=== PATIENT | male | born 1975 | race African-American/Black ===

== ENCOUNTER 2024-02-26 11:23 | Emergency (ER) | payer OTHER, SELFPAY ==
[2024-02-26] VITALS (7 sets, daily range): BP systolic 137–158; BP diastolic 88–96; PULSE 101–113; RESP 18–34; TEMP 37.4; O2SAT 93–97
--- NOTE | ~2024-02-26 | XR_ITS ---
Right Shoulder Technique: AP and scapular Y views were obtained. Clinical History: Status post fall Findings: There is a comminuted fracture of the proximal humerus, involving the surgical neck of the humerus and greater tuberosity. Suspected fracture of the glenoid as well. No dislocation evident. AC joint demonstrates moderate degenerative change. Soft tissues are unremarkable. Impression: Comminuted fracture of the proximal humerus, as above. Suspected glenoid fracture. Consider CT to better delineate fracture anatomy, as clinically indicated. Reviewed, dictated and finalized at location M. CHER OPERATOR Impression: Comminuted fracture of the proximal humerus, as above. Suspected glenoid fracture. Consider CT to better delineate fracture anatomy, as clinically indicated.
--- NOTE | ~2024-02-26 | CT_ITS ---
Noncontrast CT scan of the cervical spine Technique: Multiple contiguous axial [address] images of the cervical spine were obtained and rec onstructed in 2D sagittal and coronal planes on the acquisition scanner. Dose reduction technique was used on this scan by utilizing automated exposure control, adjustment of the mA and/or kV according to patient size. The dose-length product (DLP) was 640.11 mGy-cm. Clinical History: Pain Findings: No fractures or dislocations. There is mild reversal normal cervical lordosis. There is mi ld degenerative disc disease throughout the cervical spine. There is probable mild left neural forami nal narrowing at C3-C4. There is probable bilateral neural foraminal narrowing, left worse than right , at C4-C5. No prevertebral soft tissue swelling. Impression: No fracture or subluxation of the cervical spine. Degenerative change, as above. Reviewed, dictated and finalized at [facility]. INSTALLER Impression: No fracture or subluxation of the cervical spine. Degenerative change, as above.
--- NOTE | ~2024-02-26 | CT_ITS ---
Non-contrast Head CT History: Seizure Technique: Axial non-contrast imaging of the brain was performed. Dose reduction technique was used on this scan by utilizing automated exposure control and iterative reconstruction technique. The dose -length product (DLP) was 681.00 mGy-cm. Findings: There is vasogenic edema in the right frontal lobe with probable 3 cm mass present. There is some areas of minimal hyperdensity within the mass, and an hemorrhagic component mass is not compl etely excluded. There is local mass effect, probable focal compression of the frontal horn of the rig ht lateral ventricle. The ventricles and subarachnoid spaces are normal in size. The calvarium appea rs normal. The visualized paranasal sinuses and mastoid air cells are clear. Impression: 3 cm right frontal lobe mass with surrounding vasogenic edema and mild compression of the frontal hor n of the right lateral ventricle. Subtle hemorrhagic component mass not excluded. Pre and postcontras t MR should be strongly considered to best evaluate this lesion. Case discussed with Dr. Mcwilliams at the time of reading. Reviewed, dictated and finalized at location . WILL AMBASSADOR Impression: 3 cm right frontal lobe mass with surrounding vasogenic edema and mild compress ion of the frontal horn of the right lateral ventricle. Subtle hemorrhagic comp onent mass not excluded. Pre and postcontrast MR should be strongly considered to best evaluate this lesion. Case discussed with Dr. Mcwilliams at the time of reading.
--- NOTE | ~2024-02-26 | CT_ITS ---
CT Facial Bones Clinical Indication: Right jaw pain Technique: Contiguous axial scans were obtained through the facial bones followed by coronal and sagi ttal reconstructions. Dose reduction technique was used on this scan by utilizing automated exposure control and iterative reconstruction technique. The dose-length product (DLP) was 891.28 mGy-cm. Findings: There is an acute, oblique, displaced fracture through the base of the left mandibular cond yle. The condyle appears to be translated anteriorly with respect to the temporomandibular joint dwayne a (sagittal image 106). There is also an oblique, comminuted fracture involving the right mandibular condyle (sagittal image 32), again with anterior translation relative to the the remaining joint dwayne a. The visualized paranasal sinuses are clear. Intraorbital soft tissues appear normal. Impression: Comminuted fracture of the right mandibular condyle, an oblique fracture of the left ventricular cond yle, as detailed above. There is relative anterior translation/displacement of both condyles relative to the TMJ fossae. Reviewed, dictated and finalized at location . MACHINE CARVER Impression: Comminuted fracture of the right mandibular condyle, an oblique fracture of the left ventricular condyle, as detailed above. There is relative anterior transl ation/displacement of both condyles relative to the TMJ fossae.
--- NOTE | ~2024-02-26 | XR_ITS ---
Right Humerus Technique: AP and lateral views were obtained. Clinical History: Fall Findings: Comminuted fracture of the proximal humerus noted, with surgical neck and greater tuberosit y. Possible glenoid fracture present as well.. Visualized joint spaces are grossly preserved. Soft ti ssues are unremarkable. Impression: Comminuted fractures of proximal humerus, as above. Possible glenoid fracture. Consider CT to better delineate fracture anatomy, as indicated. Reviewed, dictated and finalized at location M. E ALIGNER Impression: Comminuted fractures of proximal humerus, as above. Possible glenoid fracture. Consider CT to better delineate fracture anatomy, as indicated.
--- NOTE | ~2024-02-26 | XR_ITS ---
Clinical Indication: Syncope, seizure AP and lateral views of the chest: Comparison: None Findings: The lungs are clear, without evidence of focal consolidation or pleural effusion. Cardiome diastinal silhouette is within normal limits. Bones and soft tissues are unremarkable. Impression: Normal chest. Reviewed, dictated and finalized at location . OYEE DEVELOPMENT MANAGER Impression: Normal chest.
--- NOTE | 2024-02-26 11:45 | ECG_ITS ---
Test Date: 2024-02-26 12:54:55 Measurements Intervals [place] Rate: 105 P: 51 HI: 132 QRS: -29 QRSD: 107 T: 29 QT: 337 QTc: 447 Interpretive Statements SINUS TACHYCARDIA BORDERLINE R WAVE PROGRESSION, ANTERIOR LEADS BORDERLINE ECG No previous ECG available for comparison Electronically Signed On 02-26-2024 14:52:45 SUPERVISOR IN CIRCUIT TESTING by Julio C Anthony D.O.
[2024-02-26] MEDS: SODIUM CHLORIDE 0.9% IV 1,000 ML 999 ML IV CONT (11:59)
[2024-02-26 12:02] LABS: Basophils Percent Auto 0.5 % (0.2-1.2); Eosinophils Absolute Auto 0.1 K/mm3 (0-0.3); Eosinophils Percent Auto 0.9 % (0-4.4); Hematocrit 43.6 % (42.0-52.0); Hemoglobin 14.1 g/dL (14.0-18.0); Immature Granulocyte Absolute 0.07 K/mm3 (0.00-0.031); Immature Granulocyte Percent A 1.1 % (0-0.5); Lymphocytes Absolute Auto 3.15 K/mm3 (0.9-3.2); Lymphocytes Percent Auto 48.7 % (18.3-44.2); Mean Corpuscular HGB Conc 32.3 g/dl (32-36); Mean Corpuscular Volume 83.5 fl (80-100); Mean Platelet Volume 9.4 fl (7.4-10.4); Monocytes Absolute Auto 0.4 K/mm3 (0.1-0.6); Monocytes Percent Auto 6.5 % (2.6-8.5); Neutrophils Absolute Auto 2.7 K/mm3 (1.3-6.7); Neutrophils Percent Auto 42.3 % (45.5-73.1); Platelet Count Result 279 k/mm3 (150-375); Red Blood Count 5.22 M/mm3 (4.6-6.20); Red Cell Distribution Width 13.5 % (11.5-14.5); White Blood Count 6.5 K/mm3 (4.5-10.0)
[2024-02-26 12:14] LABS: Alanine Aminotransferase 35 U/L (6-50); Albumin Level 4.9 g/dL (3.5-5.1); Alkaline Phosphatase 62 U/L (38-126); Anion Gap 14 mmol/L (4-12); Aspartate Amino Transferase 34 U/L (17-59); Bilirubin,Total 0.5 mg/dL (0.2-1.3); Blood Urea Nitrogen 11 mg/dL (9-20); Calcium 9.9 mg/dL (8.4-10.2); Carbon Dioxide 22 mmol/L (22-30); Chloride 101 mmol/L (98-107); Estimated CRCL calculation 135 ml/min; Estimated Glomerular Filt Rate > 60; Glucose 156 mg/dL (65-110); Potassium 3.9 mmol/L (3.4-5.0); Sodium 137 mmol/L (137-145)
[2024-02-26 12:15] LABS: Ethanol < 10 mg/dL (<10)
[2024-02-26 12:39] LABS: Influenza A QL RT-PCR Negative (Negative); Influenza B QL RT-PCR Negative (Negative); RSV RNA, RT-PCR Negative (Negative); SARS-CoV-2 RNA PCR Negative (Negative)
--- NOTE | 2024-02-26 12:47 | ED.GENADULT ---
HPI - General Adult General Chief complaint: Seizure Stated complaint: ?seizure Time Seen by Provider: 02/26/24 11:51 History of Present Illness HPI narrative: This is a 48-year-old male presenting ED for a seizure. 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 Landed on his right shoulder and face. EMS was called when they arrived the patient was postictal and combative. His mental status improved EN route to the hospital. He is currently complaining of pain to his jaw and his right shoulder. No use of blood thinners. No history of seizures. Denies use of drugs or alcohol. Related Data Allergies Allergy/AdvReac Type Severity Reaction Status Date / Time No Known Allergies Allergy Verified 02/26/24 11:55 Exam Narrative: APPEARANCE: Appears uncomfortable Head: atraumatic. EYES: EOMI, NOSE: Atraumatic NECK: Trachea midline RESPIRATORY: No increased rate of breathing clear auscultation CARDIOVASCULAR: RRR, no peripheral edema ABDOMINAL: Non-distended, soft nontender MUSCULOSKELETAl: Head to toe trauma exam performed, pain over the right shoulder. movement is severely limited to pain but scoreboard operator strength is intact in the hand w/ strong pulses. Pain over the jaw bilaterally. No other injuries noted NEURO: Alert. Cranial nerves 2-12 grossly intact. Sensation light touch, motor function cerebellar function intact for 4 extremities. Gait exam was deferred SKIN:: Warm, dry. Normal color PSYCHIATRIC: Normal affect Course Vital Signs Vital signs: Vital Signs Temperature 99.3 F 02/26/24 11:23 Pulse Rate 113 H 02/26/24 11:23 Respiratory Rate 34 H 02/26/24 11:23 Blood Pressure 158/95 H 02/26/24 11:23 Pulse Oximetry 94 02/26/24 11:23 Oxygen Delivery Room Air 02/26/24 11:23 Temperature 99.3 F 02/26/24 11:23 Pulse Rate 113 H 02/26/24 11:23 Respiratory Rate 34 H 02/26/24 11:23 Blood Pressure 158/95 H 02/26/24 11:23 Pulse Oximetry 94 02/26/24 11:52 Oxygen Delivery Room Air 02/26/24 11:52 Medical Decision Making MDM Narrative Medical decision making narrative: -Course: 48-year-old male presenting first-time seizure. Workup significant for a 3 cm frontal mass with surrounding vasogenic edema. GCS of 15. Neurologic exam normal. Patient also has bilateral mandibular fractures and a fracture of the proximal right humerus. Patient was given 1500 mg Keppra IV. Dilaudid for pain control. Patient will be transferred to [facility] for further management. Accepted by Dr. Walter. -DDX includes but is not limited to: Epilepsy brain bleed neoplasm bony injury, soft tissue injury -Independent interpretation of studies: Imaging reviewed Laboratory studies -Discussion of Management/Consultants: [facility] transfer Line -Interventions: 1500 mg Keppra, 0.5 mg Dilaudid -Shared decision making / Disposition:T/f Vital Signs Vital Signs: Vital Signs Temperature 99.3 F 02/26/24 11:23 Pulse Rate 113 H 02/26/24 11:23 Respiratory Rate 34 H 02/26/24 11:23 Blood Pressure 158/95 H 02/26/24 11:23 Pulse Oximetry 94 02/26/24 11:23 Oxygen Delivery Room Air 02/26/24 11:23 Temperature 99.3 F 02/26/24 11:23 Pulse Rate 113 H 02/26/24 11:23 Respiratory Rate 34 H 02/26/24 11:23 Blood Pressure 158/95 H 02/26/24 11:23 Pulse Oximetry 94 02/26/24 11:52 Oxygen Delivery Room Air 02/26/24 11:52 Lab Data 02/26/24 11:51 02/26/24 11:51 Labs: Lab Results 02/26/24 02/26/24 Range/Units 11:51 11:59 WBC 6.5 (4.5-10.0) K/mm3 RBC 5.22 (4.6-6.20) M/mm3 Hgb 14.1 (14.0-18.0) g/dL Hct 43.6 (42.0-52.0) % MCV 83.5 (80-100) fl MCH 27.0 (26-34) pg MCHC 32.3 (32-36) g/dl RDW 13.5 (11.5-14.5) % Plt Count 279 (150-375) k/mm3 MPV 9.4 (7.4-10.4) fl Immature Gran % (Auto) 1.1 H (0-0.5) % Neut % (Auto) 42.3 L (45.5-73.1) % Lymph % (Auto) 48.7 H (18.3-44.2) % [place] % (Auto) 6.5 (2.6-8.5) % Eos % (Auto) 0.9 (0-4.4) % Baso % (Auto) 0.5 (0.2-1.2) % Lymph # (Auto) 3.15 (0.9-3.2) K/mm3 [place] # (Auto) 0.4 (0.1-0.6) K/mm3 Eos # (Auto) 0.1 (0-0.3) K/mm3 Baso # (Auto) 0.0 (0.0-0.1) K/mm3 Abs Immat Gran (auto) 0.07 H (0.00-0.031) K/mm3 Absolute Neuts (auto) 2.7 (1.3-6.7) K/mm3 Absolute Nucleated RBC 0.000 (0.0-0.012) K/mm3 Nucleated RBC % 0.0 (0.0-0.2) % Sodium 137 (137-145) mmol/L Potassium 3.9 (3.4-5.0) mmol/L Chloride 101 (98-107) mmol/L Carbon Dioxide 22 (22-30) mmol/L Anion Gap 14 H (4-12) mmol/L BUN 11 (9-20) mg/dL Creatinine 1.00 (0.7-1.3) mg/dL Estim Creat Clear Calc 135 ml/min Estimated GFR > 60 (59 - ) Glucose 156 H (65-110) mg/dL Calcium 9.9 (8.4-10.2) mg/dL Total Bilirubin 0.5 (0.2-1.3) mg/dL AST 34 (17-59) U/L ALT 35 (6-50) U/L Alkaline Phosphatase 62 (38-126) U/L Total Protein 8.0 (6.3-8.2) g/dL Albumin 4.9 (3.5-5.1) g/dL TSH (Reflex) Pending Ethyl Alcohol < 10 (<10) mg/dL Influenza A (RT-PCR) Negative (Negative) Influenza B (RT-PCR) Negative (Negative) RSV (RT-PCR) Negative (Negative) SARS-CoV-2 RNA (RT-PCR) Negative (Negative) Critical Care Time Critical Care Time Critical Care Time: Yes Total Critical Care Time: 35 Discharge Plan Discharge Clinical Impression: Brain mass, Seizure, Fracture of mandible, Fracture, humerus Patient Disposition: Acute Care Hospital Condition: Serious Follow-up/Referrals: PHYSICIAN,SANDWICH HAND [Primary Care Provider] -
[2024-02-26 13:00] LABS: Add Urine Microscopic? YES; Appearance Urine Clear (Clear); Bacteria Urine None Seen /hpf; Bilirubin Urine Negative (Negative); Blood Urine Negative (Negative); Color Urine Yellow (Yellow); Glucose Urine UA Negative (Negative); Ketones Urine Trace mg/dL (Negative); Leukocyte Esterase Ur Negative LEU/UL (Negative); Nitrate Urine Negative (Negative); Protein Urine 2+ mg/dL (Negative); RBC Urine 0-2 /hpf (0-2); Specific Grav Ur 1.022 (1.001-1.035); Squamous Epithelial Cell Urine None Seen /hpf (Few); Urobilinogen Urine 0.2 mg/dL (<2.0); WBC Urine 0-5 /hpf (0-3); pH Urine 5.5 (5.0-9.0)
[2024-02-26] MEDS: levETIRAcetam 1500MG/NACL100ML 1,500 MG/100 ML BAG 400 MG IVPB (13:00)
[2024-02-26] MEDS: HYDROmorphone HCL INJ (*CRX) 1 MG/ML SYR 0.5 MG IV PUSH ×2 (13:14→13:55)
--- NOTE | 2024-02-26 14:06 | PC.NURSE ---
transport arrives at 1350 to get pt. leaves with patient at 1402 with belongings and chart
[2024-02-26 22:53] LABS: Amphetamine Screen Urine Negative (Negative); Barbiturate Screen Urine Negative (Negative); Benzodiazepines Screen Urine Negative (Negative); Cannabinoid Screen Urine Negative (Negative); Cocaine Screen Urine Negative (Negative); Methadone Screen Urine Negative (Negative); Opiate Screen Urine Negative (Negative); Phencyclidine Screen Urine Negative (Negative)
== END 2024-02-26 14:05 | disposition short-term general hospital (02) ==
PROVIDERS: Emergency Provider Emergency Medicine
DX: R22.0 Localized swelling, mass and lump, head (principal); R56.9 Unspecified convulsions; S02.609A Fracture of mandible, unspecified, initial encounter for closed fracture; S42.201A Unspecified fracture of upper end of right humerus, initial encounter for closed fracture; W17.89XA Other fall from one level to another, initial encounter; Z11.52 Encounter for screening for COVID-19
CPT/HCPCS: 36415; 70450; 70486; 71046; 72125; 73030; 73060; 80053; 80307; 81001; 82077; 84443; 85025; 87637; 93005; 96365; 96375; 96376; 99285; A4565; J1171; J1953; J7030